=== PATIENT | male | born 1940 | race Caucasian/White ===

== ENCOUNTER 2016-12-01 09:04 | Day surgery (SDC) | payer OTHER ==
[~2016-12-01] VITALS: Ht 188 cm; Wt 93.0 kg
[~2016-12-01 09:04] MED LIST: 0.9% Sodium Chloride 1,000 ML IV SCH; ALBU2.5V4 INHALATION; ALBU2TAB4 PO; ASPI-973 PO; CARV12.52 PO; DOXY100C43 PO; FURO40TA4 PO; GABA-502 PO; GLIP5TAB26 PO; IPRA4AER IH; LIP40 PO; LISI40TA PO; MESA800T PO; METF500T4 PO; SPIR25TA3 PO; Sodium Chloride LOK Flush 10 mL Syringe IV PRN; WARF5TAB7 PO; ZINC50TA4 PO; fentaNYL-PF 50 mCg/mL 2 mL Inj IVPUSH PRN
[2016-12-01 09:47] VITALS: BP 154/80; PULSE 62; RESP 16; O2SAT 95
[2016-12-01 10:49] VITALS: BP 137/73; PULSE 62; RESP 16; O2SAT 96
[2016-12-01 10:59] VITALS: BP 142/71; PULSE 66; RESP 16; O2SAT 95
--- NOTE | 2016-12-01 11:00 | PCM.ENDCOL ---
Colonoscopy Date of Service: Dec 01, 2016 Physician Graham Perry MD Pre Procedure Diagnosis: History of Crohn's Post Procedure Dx & Findings: Polyp hemorrhoids and diverticulosis Procedure Colonoscopy PROCEDURE IN DETAIL: Prep adequate Withdrawal time 14 minutes After unremarkable rectal examination the Olympus video colonoscope was inserted patient's anal canal and was advanced to cecum. Landmarks were identified including the ileocecal valve and appendiceal orifice. Scope was withdrawn systematically. Visualized colonic mucosa showed healthy shiny mucosa with normal healthy-appearing vasculature. In the ascending colon there was a 1 mm polyp which was removed completely using cold forceps. In the rectum, there was a 3 mm polyp which was removed completely using cold snare. We will unable to intubate the terminal ileum. Patient had few diverticula in the sigmoid colon. In the rectum retroflexion was done which showed hemorrhoids. Anal canal was inspected carefully on the way out and hemorrhoids noted. Impression Polyps 2 status post complete removal Diverticuli Hemorrhoids I saw several ibuprofen in the colon. He is completely asymptomatic and there is a question whether or not whether he has real Crohn's versus ibuprofen- induced ulcers in the past. We will address this when I see him in the clinic. Recommendation Repeat colonoscopy 5 years Diverticular diet Follow-up in the GI clinic. Presedation Assessment Risks and Benefits Informed consent was obtained from the patient after all risks and benefits including but not limited to drug reaction, infection, pain, bleeding, perforation, as well as alternatives were discussed. Patient monitoring Continuous pulse oximetry, cardiac monitoring, blood pressure monitoring, IV access, and oxygen at 2L per nasal cannula. Periprocedural Fentanyl: Fentanyl 100mcg Incrementally Midazolam: Midazolam 5mg Incrementally Complications There were no periprocedural complications identified. Post Procedure Plan Post Procedure Recommendations 1. Restrict activities today. 2. Resume normal activities in the morning. 3. Resume medications. 4. Patient informed of normal post procedure side effects as bloating, drowsiness, blood streaking in the stool. 5. average risk CRCS. If colon polyps come back as: -Hyperplastic- can repeat colonoscopy in 10 years -Tubular adenoma- repeat colonoscopy in 5 years -Tubulovillous/villous adenoma- repeat colonoscopy in 3 years -If any dysplasia- return to clinic as soon as possible 6. Please don't hesitate to call me with any questions. Graham Perry MD Dec 01, 2016 11:00
[2016-12-01 11:09] VITALS: BP 147/81; PULSE 60; RESP 16; O2SAT 96
--- NOTE | 2016-12-02 13:02 | PATH ---
SURGICAL PATHOLOGY Attending Physician:Graham Perry M.D. CASE STATUS: Signed Out PATIENT NAME: KENRICK PEDROZA PID: [id number] : 1940 DATE COLLECTED:12/01/2016 16:31 SPECIMEN: 1: Colon, Polyp 2: Rectum, Biopsy CLINICAL HISTORY: PERSONAL HISTORY OF CROHN'S 1. ASCENDING COLON POLYP X1 2. RECTAL POLYP X1 FINAL DIAGNOSIS: 1.ASCENDING COLON POLYP: POLYPOID-SHAPED FRAGMENT OF COLON MUCOSA ASSOCIATED WITH PROMINENT MUCOSAL LYMPHOID AGGREGATE. Negative for dysplasia and malignancy. Negative for significant inflammation. Negative for granulomas. Negative for significant architectural distortion. 2.RECTAL POLYP: TUBULAR ADENOMA. ICD10 D12.8 GROSS DESCRIPTION: 1. Received in formalin, labeled with the patient' s name and "ascending colon polyp", is one piece of whitley, soft tissue measuring 0.3 x 0.2 x 0.2 cm. Submitted in cassette 1A. 2. Received in formalin, labeled with the patient' s name and "rectal polyp", is one piece of whitley, soft tissue measuring 0.5 x 0.4 x 0.3 cm. Submitted in cassette 2A. ([id number]) MICRO DESCRIPTION: See diagnosis. ICD-9 CODES: CPT CODES: 1: 98613 2: 78668 Electronically Signed Out Supa Javier MD [facility] [address], [place] [address] Technical component performed at [facility], [facility] [address], [place], [address]
== END 2016-12-01 23:59 | disposition home or self-care (01) ==
LOC: END 09:04
PROVIDERS: ATTEND Internal Medicine
DX: K50.90 Crohn's disease, unspecified, without complications (principal); D12.8 Benign neoplasm of rectum; K57.30 Diverticulosis of large intestine without perforation or abscess without bleeding; K64.9 Unspecified hemorrhoids; J44.9 Chronic obstructive pulmonary disease, unspecified; I48.91 Unspecified atrial fibrillation; Z79.01 Long term (current) use of anticoagulants; Z79.82 Long term (current) use of aspirin; Z79.84 Long term (current) use of oral hypoglycemic drugs
CPT/HCPCS: 45380; 45385; 99153; G0500; J2250; J3010; J7030